=== PATIENT | female | born 1980 | race Caucasian/White ===

== ENCOUNTER 2022-04-25 05:32 | Emergency (ER) | payer BC, SELFPAY ==
[2022-04-25 05:36] VITALS: BP 165/101; PULSE 63; RESP 15; TEMP 36.5; O2SAT 97; BMI 35.2
--- NOTE | 2022-04-25 05:44 | DI.CT.S_ITS ---
PROCEDURE: CT HEAD/BRAIN WO CON INDICATIONS: first time seizure TECHNIQUE: Noncontrast 4.5 mm thick angled axial sections acquired from the foramen magnum to the vertex, with coronal and sagittal reformats. For radiation dose reduction, the following was used: automated exposure control, adjustment of mA and/or kV according to patient size. COMPARISON: None. FINDINGS: Image quality: Excellent. CSF spaces: Basal cisterns are patent. No extra-axial fluid collections. Ventricles are normal in size and shape. Brain: No midline shift. No intracranial masses or hemorrhage. Cano-white matter interface is normal. Skull and face: Calvarium and visualized facial bones are intact, without suspicious lesions. Sinuses: Visualized sinuses and mastoids are clear. IMPRESSION: No acute intracranial abnormality. MRI of the brain could be performed for further evaluation if indicated clinically. Dictated by: Domingo Andrea M.D. on 04/25/2022 at 8:06 Approved by: Domingo Andrea M.D. on 04/25/2022 at 8:08
--- NOTE | 2022-04-25 06:03 | ED_ITS ---
HPI - Seizure General Chief Complaint: Seizure Stated Complaint: seizure Time Seen by Provider: 04/25/22 05:34 Source: patient and family Mode of arrival: Ambulatory Limitations: no limitations History of Present Illness HPI Narrative: 41-year-old female daily smoker infrequent use of cannabis presents with her hus band in the chief complaint of a first-time seizure this morning. She states that she had been in her normal state of health and went to bed without any concern and her was awoken by her having what sounds like a generalized tonic-clonic seizure that lasted about 4 minutes. She is unaware of what was happening in has had a slow and gradual return to her normal neurologic baseline. She bit her tongue but did not lose control of her bladder. She is had no fever or chills and denies any neck pain. She is had no nausea, vomiting or diarrhea. She denies any ongoing neurologic symptoms such as numbness, tingling, weakness, blurred vision or trouble with speech. She is had no recent trauma or injury. She denies any recent illness. She is had no new medications. She often drinks about 1 alcoholic beverage per day and has not had 1 for the past few days. She denies any withdrawal type symptoms in the past and has had multiple occurrences in her adult life where she is gone many days without an alcoholic drink and has had no issues. Related Data Allergies Allergy/AdvReac Type Severity Reaction Status Date / Time No Known Drug Allergies Allergy Verified 04/25/22 05:49 Review of Systems Review of Systems Narrative: GENERAL: Denies chills, fatigue, malaise, fever, sweats. HEENT: Denies sinus pain, ear pain, sore throat, difficulty swallowing, dizziness. RESPIRATORY: Denies dyspnea, cough, wheezing, hemoptysis, sputum. CARDIOVASCULAR: Denies chest pain, palpitations, orthopnea, edema, GASTROINTESTINAL: Denies nausea, vomiting, abdominal pain, diarrhea, constipation, melena. : Denies dysuria, frequency, incontinence, hematuria, urinary retention. MUSCULOSKELETAL: denies weakness, joint pain, or bony pain SKIN: Denies rash, skin lesions, or other NEUROLOGIC: See HPI PSYCHIATRIC: No concerning psychosocial issues. 12 point review of systems is negative except for those stated above Patient History Social History Smoking Status: Current every day smoker Smoking Status: Current every day smoker tobacco type: vaping alcohol intake frequency: 0-2 drinks per day Substance Use Type: marijuana Exam Narrative Exam Narrative: GENERAL: [41] year old patient appears stated age. Well-developed patient, in mild distress. Anxious and tearful. GCS 15 HEAD: Atraumatic. Normocephalic. EYES: Pupils equal round and reactive. Extraocular motions intact. No scleral icterus. No injection or drainage. ENT: Nose without bleeding, purulent drainage. Throat without erythema, tonsillar hypertrophy or exudate. Airway patent. Slightly swollen tongue with abrasions along the lateral edges, no obvious laceration requiring repair, tolerating secretions and speaking clearly NECK: Trachea midline. Non tender, negative Kernig's and Brudzinski's CARDIOVASCULAR: Regular rate and rhythm without murmurs, gallops, or rubs. RESPIRATORY: Clear to auscultation. Breath sounds equal bilaterally. No wheezes, rales, or rhonchi. GASTROINTESTINAL: Abdomen soft, non-tender, nondistended. EXTREMITIES: No edema or joint tenderness. BACK: Nontender without deformity or crepitance. No flank tenderness. NEURO: AOx3. SKIN: No rash or erythema of visible areas NIH Stroke Scale 1a. LOC: Patient is alert and keenly responsive (0) 1b. LOC Questions: Patient answers both LOC questions accurately (0) 1c. LOC Commands: Patient performs both tasks correctly (0) 2. Best Gaze: Normal (0) 3. Visual: No visual loss (0) 4. Facial palsy: Normal symmetrical movements (0) 5. Motor arm: No drift (0) 6. Motor leg: No drift (0) 7. Limb ataxia: Absent (0) 8. Sensory: Normal (0) 9. Best language: No aphasia; normal (0) 10. Dysarthria: Normal (0) 11. Extinction and inattention: No abnormality (0) NIHSS: 0 Initial Vital Signs Initial Vital Signs: Vital Signs Temperature 97.7 F 04/25/22 05:36 Pulse Rate 63 04/25/22 05:36 Respiratory Rate 15 04/25/22 05:36 Blood Pressure 165/101 H 04/25/22 05:36 Pulse Oximetry 97 04/25/22 05:36 Oxygen Delivery Method 04/25/22 05:36 Course Orders Ordered: ED Orders 04/25/22 05:44 CT head/brain wo con Stat 04/25/22 05:53 Complete Blood Count AUTO DIFF Stat Comprehensive Metabolic Panel Stat Magnesium Stat Vital Signs Vital signs: Vital Signs - 8 hr 04/25/22 05:36 Temperature 97.7 F Pulse Rate 63 Respiratory Rate 15 Blood Pressure 165/101 H Pulse Oximetry 97 Oxygen Delivery Method Room Air MDM - Seizure Lab Data Result diagrams: 04/25/22 05:53 04/25/22 05:53 Labs: Lab Results 04/25/22 04/25/22 04/25/22 Range/Units 05:53 05:53 05:53 WBC 8.0 (4.5-11.0) X10^3/uL RBC 4.93 (4.0-5.2) X10^6/uL Hgb 14.8 (12.0-16.0) g/dL Hct 43.3 (36-46) % MCV 87.8 (80-100) fL MCH 30.1 (26-34) PG MCHC 34.2 (30-36) % RDW 13.3 (11.6-14.8) % Plt Count 295 (150-400) X10^3/uL Neut % (Auto) 62.1 (50-75) % Lymph % (Auto) 23.6 L (25-40) % [place] % (Auto) 7.5 (3-14) % Eos % (Auto) 6.2 H (2-4) % Baso % (Auto) 0.6 (0-2) % Neut # (Auto) 5000 (4666-3454) /uL Lymph # (Auto) 1900 (2939-0308) /uL [place] # (Auto) 600 (0-900) /uL Eos # (Auto) 500 H (0-450) /uL Baso # (Auto) 0 (0-100) /uL Sodium 138 (137-145) mmol/L Potassium 3.8 (3.4-5.1) mmol/L Chloride 104 (98-107) mmol/L Carbon Dioxide 25 (22-32) mmol/L BUN 15 (7-17) mg/dL Creatinine 0.74 (0.52-1.04) mg/dL Estimated GFR > 60 (>60) mL/min BUN/Creatinine Ratio 20.3 (6-22) Glucose 121 H (70-100) mg/dL Calcium 8.9 (8.4-10.2) mg/dL Magnesium 1.9 (1.6-2.3) mg/dL Total Bilirubin 0.4 (0.2-1.3) mg/dL AST 21 (14-36) IU/L ALT 20 (<35) IU/L Alkaline Phosphatase 67 (38-126) U/L Total Protein 7.4 (6.3-8.2) g/dL Albumin 4.0 (3.5-5.0) g/dL Globulin 3.4 (1.7-4.1) g/dL Albumin/Globulin Ratio 1.2 (1.0-2.8) Urine Dip Bedside Urine Glucose Negative Bedside Urine Bilirubin - Negative Bedside Urine Ketone - Negative Bedside Urine Occult Blood - Negative Bedside Urine Protein - Negative Bedside Urine Urobilinogen - Negative Bedside Urine Nitrite - Negative Bedside Urine Leukocytes - Negative Esterase MDM Narrative Medical decision making narrative: Patient presents with first-time seizure. Her witnessed a 3-4 minute typical generalized tonic-clonic seizure with typical postictal phase. There is no recent trauma, infectious type symptoms, neck pain to suggest meningitis, alcohol history or other concerning elements to her history. Labs are reassuring and imaging shows no obvious bleeding or mass. She is instructed to not drive until cleared by Neurology, follow close with her primary care provider. I called the PCP office to discussed with on-call provider who took patient's name and will relate to appropriate office personnel to obtain consultation. Patient given extensive return precautions and questions answered to her apparent satisfaction Discharge Plan Departure Patient Disposition: Home Clinical Impression: Generalized seizure Instructions: DI for Seizure (Not Epilepsy/Seizure Disorder) Activity Restrictions/Additional Instructions: *You have been diagnosed with [first-time seizure. As we discussed your history and physical exam as well as returned to baseline are very reassuring. Your labs are unremarkable and head CT shows no significant findings.] *What to do: *Please continue to take your regular medications as directed. *Please follow up with your primary care provider call for an appointment. Let them know you were seen in the Emergency Department and that we ask that you be seen in follow up. We will electronically transmit a record of today's note. I called the on-call doctor for Dr. Overton to give them an update and encouraged them to begin the process for referral which typically should happen within 10- 14 days. As we discussed until you were seen and evaluated by Neurology you can not drive or engage in other activities that would be considered dangerous or you to have another seizure such as swimming, riding a motorcycle, etc. *Return to Emergency Department if you should have any new, worsening or concerning symptoms, such as [fever greater than 101 F, shaking chills, worsening pain, persistent vomiting or other bothersome symptoms] Referrals: Demond Overton DO [Non-Staff] - Visit Report Forms: Patient Portal/API
[2022-04-25 06:13] LABS: Add Manual Diff / Slide Review NO; Basophils Absolute Auto 0 /uL (0-100); Basophils Percent Auto 0.6 % (0-2); Eosinophils Absolute Auto 500 /uL (0-450); Eosinophils Percent Auto 6.2 % (2-4); Hematocrit 43.3 % (36-46); Hemoglobin 14.8 g/dL (12.0-16.0); Lymphocytes Absolute Auto 1900 /uL (1100-4500); Lymphocytes Percent Auto 23.6 % (25-40); Mean Corpuscular HGB Conc 34.2 % (30-36); Mean Corpuscular Hemoglobin 30.1 PG (26-34); Mean Corpuscular Volume 87.8 fL (80-100); Monocytes Absolute Auto 600 /uL (0-900); Monocytes Percent Auto 7.5 % (3-14); Neutrophils Absolute Auto 5000 /uL (1500-7000); Neutrophils Percent Auto 62.1 % (50-75); Platelet Count 295 X10^3/uL (150-400); Red Blood Cell Count 4.93 X10^6/uL (4.0-5.2); Red Cell Distribution Width 13.3 % (11.6-14.8)
[2022-04-25 06:16] LABS: Alanine Aminotransferase 20 IU/L (<35); Albumin Globulin Ratio 1.2 (1.0-2.8); Alkaline Phosphatase 67 U/L (38-126); Aspartate Aminotransferase 21 IU/L (14-36); BUN Creatinine Ratio 20.3 (6-22); Bilirubin Total 0.4 mg/dL (0.2-1.3); Blood Urea Nitrogen 15 mg/dL (7-17); Calcium 8.9 mg/dL (8.4-10.2); Carbon Dioxide 25 mmol/L (22-32); Chloride 104 mmol/L (98-107); Estimated Glomerular Filt Rate > 60 mL/min (>60); Globulin 3.4 g/dL (1.7-4.1); Glucose 121 mg/dL (70-100); HEMOLYSIS < 15 (0-50); Potassium 3.8 mmol/L (3.4-5.1); Sodium 138 mmol/L (137-145); Total Protein 7.4 g/dL (6.3-8.2)
[2022-04-25 06:42] LABS: Magnesium 1.9 mg/dL (1.6-2.3)
[2022-04-25 07:27] VITALS: BP 155/83; PULSE 56; RESP 20; O2SAT 97
== END 2022-04-25 07:29 | disposition home or self-care (01) ==
PROVIDERS: Emergency Provider Emergency Medicine
DX: R56.9 Unspecified convulsions (principal)
CPT/HCPCS: 36415; 70450; 80053; 81003; 83735; 85025; 99284